=== PATIENT | male | born 1960 | race Caucasian/White ===

== ENCOUNTER 2017-06-07 16:00 | Emergency (ER) | payer OTHER ==
[~2017-06-07] VITALS: Ht 167.6 cm; Wt 75.0 kg
[2017-06-07 16:10] VITALS: Ht 167.6 cm; Wt 75.0 kg
[2017-06-07] MEDS ORDERED: SOD CHLORIDE 0.9% 1,000 ML IV STA (16:17)
[2017-06-07 16:42] LABS: BASOPHILS % 0.4 % (0.0-2.0); EOSINOPHILS % 0.5 % (0.0-7.0); HEMATOCRIT 35.6 % (42.0-52.0); LYMPHOCYTES # 1.5 10^3/ul (0.8-2.9); LYMPHOCYTES % 20.4 % (15.0-51.0); MEAN CORPUSCULAR HEMOGLOBIN 29.9 pg (29.0-33.0); MEAN CORPUSCULAR HGB CONC 33.7 g/dl (32.0-37.0); MEAN CORPUSCULAR VOLUME 88.6 fl (82.0-101.0); MEAN PLATELET VOLUME 10.7 fl (7.4-10.4); MONOCYTE # 0.4 10^3/ul (0.3-0.9); MONOCYTES % 5.7 % (0.0-11.0); NEUTROPHIL # 5.4 10^3/ul (1.6-7.5); NEUTROPHILS % 72.6 % (39.0-77.0); PLATELET COUNT 212 10^3/UL (140-415); RED BLOOD COUNT 4.02 10^6/ul (4.70-6.10); RED CELL DISTRIBUTION WIDTH 13.2 % (11.5-14.5); WHITE BLOOD COUNT 7.5 10^3/ul (4.8-10.8)
[2017-06-07 16:57] LABS: INR 1.13; PROTIME 14.7 Sec (11.9-14.9); PT RATIO 1.1
[2017-06-07 16:58] LABS: PARTIAL THROMBOPLASTIN TIME 26.3 Sec (25.0-35.0)
[2017-06-07 17:00] LABS: ANION GAP 13 (8-16); BLOOD UREA NITROGEN 23 mg/dl (7-20); CALCIUM 8.3 mg/dl (8.4-10.2); CARBON DIOXIDE 29 mmol/L (21-31); CHLORIDE 102 mmol/L (97-110); CREATININE 0.88 mg/dl (0.61-1.24); GLUCOSE 174 mg/dl (70-220); POTASSIUM 4.4 mmol/L (3.5-5.1); SODIUM 140 mmol/L (135-144)
--- NOTE | 2017-06-07 17:06 | RADRPT ---
PROCEDURE: XR Chest. CLINICAL INDICATION: Shortness of breath. TECHNIQUE: A single portable view of the chest was obtained. COMPARISON: None FINDINGS: The cardiomediastinal silhouette is within normal limits. The lungs and pleural spaces are clear. The soft tissues and osseous structures are unremarkable. IMPRESSION: No acute cardiopulmonary disease. RPTAT: HPNM Physician Larry Date Time Electronically viewed and signed by Rell Colin Physician on 06/07/2017 17:06 /
--- NOTE | 2017-06-07 17:23 | RADRPT ---
PROCEDURE: Noncontrast CT Head. CLINICAL INDICATION: Stroke. TECHNIQUE: Noncontrast CT of the head was obtained. The administered radiation dose was CTDI vol = 44.19, 24.19 mGy, DLP = 720.23, 40.37 mGy-cm. One or more of the following dose reduction techniques were used: Automated exposure control, Adjustment of the mA and/or kV according to patient size, or Use of iterative reconstruction technique. DICOM images are available. COMPARISON: There are no similar studies submitted for comparison. FINDINGS: There is mild generalized cerebral volume loss. There is mild periventricular hypoattenuation sugge sting chronic microvascular ischemic changes. There are mild vascular calcifications within the in tracranial carotid arteries. There is a chronic left medial frontal infarction with encephalomalacia and surrounding gliosis. The re is also small right inferior frontal infarction. There is a chronic left caudate head lacunar inf arction. There is a chronic left basal ganglia lacunar infarction. There is subtle hypoattenuation within the right thalamus and posterior internal capsule measure diomedes roximate 1 cm (image 14 series 2) which may represent acute / recent infarction. There is no acute intracranial hemorrhage or extra-axial fluid collection. No midline shift is identified. The orbits are within normal limits. The paranasal sinuses are well aerated. No destructive osseous lesion is identified. IMPRESSION: 1. Subtle hypoattenuation within the right thalamus and posterior frontal capsule measure approximat e 1 cm which may represent acute / recent infarction. Noncontrast MRI of the brain may be performed as clinically warranted. 2. No acute intracranial hemorrhage or extra-axial fluid collection. 3. Mild generalized cerebral volume loss. 4. Mild chronic microvascular ischemic changes. 5. Chronic left medial frontal infarction and small chronic right inferior frontal infarction. 6. Chronic left basal ganglia lacunar infarction. 7. Chronic left caudate head lacunar infarction. Further findings as detailed above. Critical findings were discussed with Olman Farrell on 06/07/2017 at 05:20 p.m. RPTAT: HVF .Erick Hogan MD, MD Date Time Electronically viewed and signed by .Erick Hogan MD, on 06/07/2017 17:22 .F/
[2017-06-07 17:45] LABS: TROPONIN-I < 0.012 ng/ml (0.00-0.12)
[2017-06-07] MEDS ORDERED: ASPIRIN 325 MG TAB PO ONE (18:00)
--- NOTE | 2017-06-07 18:45 | ERD ---
ER Documentation Chief Complaint Chief Complaint BIB RA FOR EVAL OF WEAKNESS AND LOW BP HPI Patient is a 57-year-old male with previous stroke, hypertension, and diabetes who presents for weakness. The patient was brought in by ambulance. He came from a assisted living facility. He was "weak all day" per the sister. He was okay yesterday. The onset was unclear but it was sometime this morning. He has a history of previous stroke. His primary doctor is a Dr. Benson at [facility]. He has had no treatment as of yet. ROS All systems reviewed and are negative except as per history of present illness. Allergies Allergies: Coded Allergies: No Known Allergy (Unverified , 06/07/17) PMhx/Soc Hx Neurological Disorder: Yes (CVA) Hx Alcohol Use: No Hx Substance Use: No Hx Tobacco Use: No Smoking Status: Never smoker FmHx Family History: diabetes Physical Exam Vitals Vital Signs Date Time Temp Pulse Resp B/P Pulse Ox O2 Delivery O2 Flow Rate FiO2 06/07/17 16:10 61 18 89/56 100 Physical Exam Const: Slurred speech Head: Atraumatic Eyes: Normal Conjunctiva ENT: Normal External Ears, Nose and Mouth. Neck: Full range of motion..~ No meningismus. Resp: Clear to auscultation bilaterally Cardio: Regular rate and rhythm, no murmurs Abd: Soft, non tender, non distended. 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 Result Diagram: 06/07/17 1635 06/07/17 1635 Results 24 hrs Laboratory Tests Test 06/07/17 16:35 06/07/17 16:41 White Blood Count 7.510^3/ul Red Blood Count 4.0210^6/ul Hemoglobin 12.0g/dl Hematocrit 35.6% Mean Corpuscular Volume 88.6fl Mean Corpuscular Hemoglobin 29.9pg Mean Corpuscular Hemoglobin Concent 33.7g/dl Red Cell Distribution Width 13.2% Platelet Count 91674^3/UL Mean Platelet Volume 10.7fl Neutrophils % 72.6% Lymphocytes % 20.4% Monocytes % 5.7% Eosinophils % 0.5% Basophils % 0.4% Nucleated Red Blood Cells % 0.0/100WBC Neutrophils # 5.410^3/ul Lymphocytes # 1.510^3/ul Monocytes # 0.410^3/ul Eosinophils # 0.010^3/ul Basophils # 0.010^3/ul Nucleated Red Blood Cells # 0.010^3/ul Prothrombin Time 14.7Sec Prothrombin Time Ratio 1.1 INR International Normalized Ratio 1.13 Activated Partial Thromboplast Time 26.3Sec Sodium Level 140mmol/L Potassium Level 4.4mmol/L Chloride Level 102mmol/L Carbon Dioxide Level 29mmol/L Anion Gap 13 Blood Urea Nitrogen 23mg/dl Creatinine 0.88mg/dl Glucose Level 174mg/dl Hemoglobin A1c 6.4% Calcium Level 8.3mg/dl Troponin I < 0.012ng/ml Bedside Glucose 164mg/dL Current Medications Medications (Trade) Dose Ordered Sig/My Route PRN Reason Start Time Stop Time Status Last Admin Dose Admin Sodium Chloride (NS) 1,000 ml @ 1,000 mls/hr Q1H STAT IV 06/07/17 16:17 06/07/17 17:16 DC 06/07/17 16:25 Aspirin (Aspirin) 325 mg ONCE ONCE PO 06/07/17 18:00 06/07/17 18:01 DC 06/07/17 18:07 Procedures/MDM EKG read by me: Rate/Rhythm: Sinus bradycardia rate of 59 Intervals: Normal Impression: Sinus bradycardia without ischemia CT brain shows acute stroke per radiology. Patient is a 57-year-old male with stroke risk factors who presents with an acute stroke. He is outside the window for TPA as it started this morning and there was not a clear onset time. The risks of giving TPA outweigh the benefits. The patient will be transferred to [facility] as this is where his insurance is and I spoke with Dr. Lopez who will accept the patient for transfer to a telemetry bed. The patient was given aspirin after he passed a swallow evaluation. I doubt intracranial mass or hemorrhage. Critical Care: Time: 35 minutes excluding all billable procedures. Treatments/Evaluations: Close monitoring and treatment of unstable vital signs, cardiorespiratory, and neurologic status, while maintaining tight balance of fluid, respiratory, and cardiac interventions. Departure Diagnosis: Primary Impression: Acute ischemic stroke Condition: Serious OSTICK,TRACY MD Jun 07, 2017 18:45
[2017-06-07] MEDS ORDERED: LORAZEPAM 2 MG INJ IV ONE (19:00)
[2017-06-07 20:40] VITALS: BP 95/57; PULSE 71; RESP 18; TEMP 98.1
== END 2017-06-07 20:41 | disposition short-term general hospital (02) ==
LOC: E/R 16:00
DX: I63.9 Cerebral infarction, unspecified (principal); I10 Essential (primary) hypertension; E11.9 Type 2 diabetes mellitus without complications; R51 Headache
CPT/HCPCS: 70450; 71010; 80048; 82962; 83036; 84484; 85025; 85610; 85730; 93005; 96374; 99291; J2060; J7030